=== PATIENT | female | born 1980 | race Caucasian/White ===

== ENCOUNTER 2016-05-31 06:48 | Emergency (ER) | payer OTHER ==
[~2016-05-31] VITALS: Ht 162.6 cm; Wt 67.1 kg
[~2016-05-31 06:48] MED LIST: HYDR-1189 PO; LACTIN PO; LEVO500T20 PO; METR500T PO
[2016-05-31 06:56] VITALS: BP 125/74; PULSE 89; RESP 16; TEMP 97.8; O2SAT 100
--- NOTE | 2016-05-31 07:00 | NUR ---
Patient to ER bed 08 to gown for evaluation. Side rails up.
--- NOTE | 2016-05-31 07:10 | NUR ---
Assumed care,pt presents to ED c/o migraine type LOPEZ.Pt reports h/o migraines, Pt HCG(+).
--- NOTE | 2016-05-31 07:12 | NUR ---
ER at bedside examining patient.
[2016-05-31] MEDS ORDERED: NACL 0.9% 1,000 ML IV ONE (07:16)
[2016-05-31 07:25] LABS: BILIRUBIN,URINE NEGATIVE (NEGATIVE); BLOOD, URINE NEGATIVE (NEGATIVE); CLARITY/URINE SL HAZY (CLEAR); COLOR,URINE YELLOW (YELLOW); GLUCOSE,URINE NEGATIVE (NEGATIVE); KETONES,URINE NEGATIVE (NEGATIVE); LEUKOCYTE ESTERASE ,URINE NEGATIVE (NEGATIVE); NITRITE, URINE NEGATIVE (NEGATIVE); PROTEIN URINE NEGATIVE (NEGATIVE); UROBILINOGEN,URINE 0.2 (0.2-1.0)
[2016-05-31] MEDS ORDERED: PROCHLORPERAZINE EDISYLATE 10 MG/2 ML VIAL IVP ONE (07:30)
[2016-05-31] MEDS ORDERED: ACETAMINOPHEN 500 MG TABLET PO ONE (07:30)
[2016-05-31] MEDS ORDERED: DIPHENHYDRAMINE INJ 50 MG/ML VIAL IVP ONE (07:30)
--- NOTE | 2016-05-31 07:40 | NUR ---
Pt tolerated medication well.Pt reports pain resolved.
[2016-05-31 08:00] VITALS: BP 120/76; PULSE 84; RESP 16; TEMP 97.8; O2SAT 100
--- NOTE | 2016-05-31 08:00 | NUR ---
Patient given written and verbal discharge instructions and verbalizes understanding. ER MD discussed with patient the results and treatment provided. Given copies of tests performed in ER. Patient in stable condition. ID arm band removed. IV catheter removed intact and dressing applied, no active bleeding. Rx of Reglan given. Patient educated on pain management and to follow up with PMD. Pain Scale 0. Opportunity for questions provided and answered.
== END 2016-05-31 08:00 | disposition home or self-care (01) ==
LOC: SED 06:48
DX: O26.899 Other specified pregnancy related conditions, unspecified trimester (principal); G43.909 Migraine, unspecified, not intractable, without status migrainosus
CPT/HCPCS: 81003; 81025; 96361; 96374; 96375; 99284; J0780; J1200; J7030

== ENCOUNTER 2016-08-09 19:45 | Emergency (ER) | payer OTHER ==
[~2016-08-09] VITALS: Ht 165.1 cm; Wt 66.2 kg
[2016-08-09 19:50] VITALS: BP_SYST 108
[2016-08-09] MEDS ORDERED: NACL 0.9% 1,000 ML IV ONE (21:15)
[2016-08-09 21:17] LABS: BILIRUBIN,URINE NEGATIVE (NEGATIVE); BLOOD, URINE NEGATIVE (NEGATIVE); CLARITY/URINE HAZY (CLEAR); COLOR,URINE YELLOW (YELLOW); GLUCOSE,URINE NEGATIVE (NEGATIVE); KETONES,URINE TRACE (NEGATIVE); LEUKOCYTE ESTERASE ,URINE NEGATIVE (NEGATIVE); NITRITE, URINE NEGATIVE (NEGATIVE); PROTEIN URINE NEGATIVE (NEGATIVE); UROBILINOGEN,URINE 0.2 (0.2-1.0)
[2016-08-09 21:22] LABS: BASOPHILS % (AUTO) 0.3 % (0.0-2.0); EOSINOPHILS # (AUTO) 0.3 K/uL (0.0-0.4); EOSINOPHILS % (AUTO) 2.4 % (0.0-4.0); HEMOGLOBIN 11.3 g/dL (12.0-16.0); LYMPHOCYTES # (AUTO) 1.4 K/uL (1.0-5.5); LYMPHOCYTES % (AUTO) 11.2 % (20.5-51.5); MEAN CORPUSCULAR HEMOGLOBIN 30 pg (27-31); MEAN CORPUSCULAR HGB CONC 34 % (32-36); MEAN CORPUSCULAR VOLUME 89 fL (79.0-98.0); MONOCYTES % (AUTO) 7.7 % (1.7-9.3); NEUTROPHILS # (AUTO) 9.8 K/uL (1.8-7.7); NEUTROPHILS % (AUTO) 78.4 % (40.0-70.0); PLATELET COUNT (AUTO) 232 K/uL (130-430); RED BLOOD CELL COUNT(AUTO) 3.72 MIL/uL (4.2-6.2); RED CELL DISTRIBUTION WIDTH 12.9 % (9.0-15.0); WHITE BLOOD COUNT (AUTO) 12.4 K/uL (4.8-10.8)
[2016-08-09 21:36] LABS: CALCIUM 9.2 mg/dL (8.4-11.0); CREATININE 0.63 mg/dL (0.55-1.30); POTASSIUM 3.3 mmol/L (3.5-5.1)
[2016-08-09 21:49] LABS: ALBUMIN 2.9 g/dL (3.4-4.8); INR 0.9 (0.8-1.2); TOTAL BILIRUBIN 0.1 mg/dL (0.0-1.0); TOTAL PROTEIN, SERUM 7.3 g/dL (6.4-8.3)
[2016-08-10 00:01] VITALS: BP_SYST 118
== END 2016-08-10 00:01 | disposition home or self-care (01) ==
LOC: SED 19:45
DX: O26.892 Other specified pregnancy related conditions, second trimester (principal); R53.1 Weakness; R79.89 Other specified abnormal findings of blood chemistry; R42 Dizziness and giddiness; G43.909 Migraine, unspecified, not intractable, without status migrainosus; Z3A.16 16 weeks gestation of pregnancy; Z88.8 Allergy status to other drugs, medicaments and biological substances
CPT/HCPCS: 36415; 80053; 81003; 84702; 85025; 85384; 85610; 85730; 93005; 96360; 99285; J7030

== ENCOUNTER 2016-11-09 21:20 | Emergency (ER) | payer OTHER ==
[~2016-11-09] VITALS: Ht 162.6 cm; Wt 72.6 kg
[2016-11-09 21:45] VITALS: BP_SYST 117
[2016-11-10] MEDS ORDERED: MAGNESIUM CITRATE 300 ML ORAL SOLUTION PO ONE
[2016-11-10 00:30] VITALS: BP_SYST 119
== END 2016-11-10 00:30 | disposition home or self-care (01) ==
LOC: SED 21:20
DX: O26.893 Other specified pregnancy related conditions, third trimester (principal); K59.00 Constipation, unspecified; G43.909 Migraine, unspecified, not intractable, without status migrainosus; Z3A.30 30 weeks gestation of pregnancy; Z90.49 Acquired absence of other specified parts of digestive tract; Z88.1 Allergy status to other antibiotic agents
CPT/HCPCS: 99283

== ENCOUNTER 2017-05-04 10:11 | Emergency (ER) | payer OTHER ==
[~2017-05-04] VITALS: Ht 165.1 cm; Wt 68.0 kg
[2017-05-04 10:11] VITALS: BP_SYST 133
[2017-05-04] MEDS ORDERED: LIDOCAINE 1% 10 MG/ML, 20 ML MDV IJ ONE (11:30)
[2017-05-04 15:17] LABS: BF APPEARANCE UNSPUN CLOUDY (CLEAR)
[2017-05-04 15:18] LABS: BODY FLUID COLOR YELLOW (LT YELLOW); BODY FLUID SOURCE/ TYPE RIGHT KNEE; BODY FLUID TOTAL VOLUME 55 mL; RBC, BODY FLUID 1188 /uL; SOURCE/TYPE ,BODY FLUID SYNOVIAL; WBC, BODY FLUID 3122 /uL
[2017-05-04 15:22] LABS: LYMPHOCYTES, BODY FLUID 62 %; MONOCYTES,BODY FLUID 22 %; NEUTROPHIL, BODY FLUID 16 %
[2017-05-04 16:16] LABS: BODY FLUID CRYSTALS NO CRYSTALS SEEN (None Seen)
[2017-05-04 16:59] LABS: BODY FLUID GLUCOSE 89 mg/dL; BODY FLUID TOTAL PROTEIN 4.9 g/dL
== END 2017-05-04 15:34 | disposition home or self-care (01) ==
LOC: SED 10:11
DX: M25.461 Effusion, right knee (principal); Z88.8 Allergy status to other drugs, medicaments and biological substances; Z90.49 Acquired absence of other specified parts of digestive tract
CPT/HCPCS: 20610; 73564; 82947; 84157; 87070; 89051 ×2; 89060; 99285; J2001

== ENCOUNTER 2018-05-09 07:59 | Emergency (ER) | payer OTHER ==
[~2018-05-09] VITALS: Ht 165.1 cm; Wt 66.7 kg
[2018-05-09 08:00] VITALS: BP_SYST 126
[2018-05-09] MEDS ORDERED: IBUPROFEN 600 MG TABLET PO ONE (08:30)
[2018-05-09 08:44] LABS: BASOPHILS # (AUTO) 0.1 K/uL (0.0-0.2); BASOPHILS % (AUTO) 0.8 % (0.0-2.0); EOSINOPHILS # (AUTO) 0.1 K/uL (0.0-0.4); EOSINOPHILS % (AUTO) 1.8 % (0.0-4.0); HEMATOCRIT 36.6 % (36-48); LYMPHOCYTES # (AUTO) 2.3 K/uL (1.0-5.5); MEAN CORPUSCULAR HEMOGLOBIN 29 pg (27-31); MEAN CORPUSCULAR HGB CONC 33 % (32-36); MEAN CORPUSCULAR VOLUME 90 fL (79.0-98.0); MONOCYTES # (AUTO) 0.7 K/uL (0.0-1.0); MONOCYTES % (AUTO) 10.4 % (1.7-9.3); NEUTROPHILS # (AUTO) 3.8 K/uL (1.8-7.7); PLATELET COUNT (AUTO) 277 K/uL (130-430); RED BLOOD CELL COUNT(AUTO) 4.09 MIL/uL (4.2-6.2); RED CELL DISTRIBUTION WIDTH 13.3 % (9.0-15.0)
[2018-05-09] MEDS ORDERED: IBUPROFEN 600 MG TABLET ONE (08:48)
[2018-05-09 08:50] LABS: CALCIUM 8.9 mg/dL (8.4-11.0); CREATININE 0.67 mg/dL (0.55-1.30); POTASSIUM 3.8 mmol/L (3.5-5.1)
[2018-05-09 08:54] LABS: ALBUMIN 3.9 g/dL (3.4-4.8); TOTAL BILIRUBIN 0.5 mg/dL (0.0-1.0)
[2018-05-09 09:32] VITALS: BP_SYST 109
== END 2018-05-09 09:32 | disposition home or self-care (01) ==
LOC: SED 07:59
DX: R51 Headache (principal); R42 Dizziness and giddiness; M19.90 Unspecified osteoarthritis, unspecified site; Z88.8 Allergy status to other drugs, medicaments and biological substances
CPT/HCPCS: 36415; 70450-TC; 80053; 81002; 81025; 85025; 99284

== ENCOUNTER 2019-03-24 23:00 | Emergency (ER) | payer OTHER ==
[~2019-03-24] VITALS: Ht 162.6 cm; Wt 66.7 kg
[2019-03-24 23:38] VITALS: BP_SYST 118
--- NOTE | 2019-03-24 23:44 | NUR ---
Pt placed to ER bed 07. Report given to ADIS Astorga.
[2019-03-25] MEDS ORDERED: KETOROLAC TROMETHAMINE 30 MG VIAL IVP ONE
[2019-03-25] MEDS ORDERED: NACL 0.9% 1,000 ML IV ONE
--- NOTE | 2019-03-25 00:08 | NUR ---
Dr. Rodriguez bedside for Pt eval
[2019-03-25] MEDS ORDERED: ONDANSETRON HCL 4 MG/2 ML VIAL IVP ONE (00:15)
--- NOTE | 2019-03-25 00:20 | NUR ---
Pt BIB family to ED C/O headache and vomiting since this morning. Pt with continued vomiting today. Pt with abdominal pain. Pt with fever and chills. Pt denies hematemesis. Pt describes sharp intermittent 7/10 epigastric without radiation. Pt denies dysuria. Pt denies diarrhea. Pt took Motrin without improvement in pain. Pt denies lightheadedness or LOC. Pt with body aches. No other complaints and or injuries noted VSS no s/s of acute distress. Resting on gurney rails up
--- NOTE | 2019-03-25 00:55 | NUR ---
Dr. Rodriguez bedside for Pt update
[2019-03-25 01:25] VITALS: BP_SYST 118
--- NOTE | 2019-03-25 01:25 | NUR ---
Patient given written and verbal discharge instructions and verbalizes understanding. ER MD discussed with patient the results and treatment provided. Patient in stable condition. ID arm band removed. IV catheter removed intact and dressing applied, no active bleeding. Rx of Motrin, Zofran and Grant given. Patient educated on pain management and to follow up with PMD. Pain Scale 0/10 Opportunity for questions provided and answered. Medication side effect fact sheet provided.
== END 2019-03-25 01:25 | disposition home or self-care (01) ==
LOC: SED 23:00
DX: R10.13 Epigastric pain (principal); R11.2 Nausea with vomiting, unspecified; G43.909 Migraine, unspecified, not intractable, without status migrainosus; Z90.49 Acquired absence of other specified parts of digestive tract; Z88.8 Allergy status to other drugs, medicaments and biological substances
CPT/HCPCS: 96361; 96374; 96375; 99283; J1885; J2405; J7030

== ENCOUNTER 2019-07-30 05:15 | Emergency (ER) | payer OTHER ==
[~2019-07-30] VITALS: Ht 162.6 cm; Wt 67.1 kg
[2019-07-30 05:46] VITALS: BP_SYST 140
[2019-07-30] MEDS ORDERED: NACL 0.9% 1,000 ML IV ONE (06:16)
[2019-07-30] MEDS ORDERED: PROCHLORPERAZINE EDISYLATE 10 MG/2 ML VIAL IVP ONE (06:30)
[2019-07-30] MEDS ORDERED: KETOROLAC TROMETHAMINE 30 MG VIAL IVP ONE (06:30)
[2019-07-30] MEDS ORDERED: BENZTROPINE MESYLATE 2 MG/ 2 ML AMP IVP ONE (06:30)
[2019-07-30 07:09] VITALS: BP_SYST 140
== END 2019-07-30 07:09 | disposition home or self-care (01) ==
LOC: SED 05:15
DX: G43.901 Migraine, unspecified, not intractable, with status migrainosus (principal); Z88.6 Allergy status to analgesic agent; Z90.49 Acquired absence of other specified parts of digestive tract
CPT/HCPCS: 96374; 96375; 99284; J0515; J0780; J1885; J7030

== ENCOUNTER 2020-10-17 01:44 | Emergency (ER) | payer OTHER ==
[~2020-10-17] VITALS: Ht 162.6 cm; Wt 68.0 kg
[2020-10-17 01:55] VITALS: BP_SYST 141
--- NOTE | 2020-10-17 01:55 | NUR ---
Patient to ER bed 7 to gown for evaluation. Side rails up. Report given to PATRICIA ARCEO.
--- NOTE | 2020-10-17 01:56 | NUR ---
Came in ER ambulatory from home this 44 year old female, AAOX4, bretahing spontaneously at room air, not in distress noted. With chief complaints of severe headcahe since 11pm, history of Migraine and rheumatoid arthritis. Allergy to dephenhydramine and sumatripan. Vital signs stable
--- NOTE | 2020-10-17 02:01 | NUR ---
Seen and examined by Dr. Abreu
[2020-10-17] MEDS ORDERED: KETOROLAC TROMETHAMINE 30 MG VIAL IM ONE (02:15)
[2020-10-17] MEDS ORDERED: PROCHLORPERAZINE EDISYLATE 10 MG/2 ML VIAL IVP ONE (02:15)
[2020-10-17] MEDS ORDERED: NS 500 ML IV ONE (02:15)
--- NOTE | 2020-10-17 02:25 | NUR ---
# 20 gauge angiocath placed to left ac. Use of asceptic technique. Opsite placed over site. Blood return noted. Flushed with 10 cc of normal saline. No evidence of infiltration noted. Patient tolerated well.
--- NOTE | 2020-10-17 02:26 | NUR ---
Medications given as ordered, health teaching provided and verbalized understanding
--- NOTE | 2020-10-17 03:01 | NUR ---
Re-assesed by Dr. Abreu, for discharge
[2020-10-17 03:09] VITALS: BP_SYST 124
--- NOTE | 2020-10-17 03:09 | NUR ---
Patient given written and verbal discharge instructions and verbalizes understanding. ER MD discussed with patient the results and treatment provided. Patient in stable condition. ID arm band removed. IV catheter removed intact and dressing applied, no active bleeding. No Rx of given. Patient educated on pain management and to follow up with PMD. Pain Scale 0/10. Opportunity for questions provided and answered. Medication side effect fact sheet provided.
== END 2020-10-17 03:09 | disposition home or self-care (01) ==
LOC: SED 01:44
DX: G43.909 Migraine, unspecified, not intractable, without status migrainosus (principal); Z88.8 Allergy status to other drugs, medicaments and biological substances
CPT/HCPCS: 81025; 96361; 96372; 96374; 99284; J0780; J1885; J7030

== ENCOUNTER 2022-05-11 08:17 | Emergency (ER) | payer OTHER ==
[~2022-05-11] VITALS: Ht 162.6 cm; Wt 70.3 kg
[2022-05-11 08:20] VITALS: BP_SYST 125
--- NOTE | 2022-05-11 08:28 | NUR ---
Patient triaged and placed in waiting room. VSS and patient appears in no acute distress at this time. Accompanied by SELF, awaiting available bed, and MD notified of need for MSE.
--- NOTE | 2022-05-11 08:35 | NUR ---
BROUGHT BACK TO BED IN HALLWAY AND REPORT GIVEN TO YARA
--- NOTE | 2022-05-11 08:40 | NUR ---
ER DR. GUERRA EXAMINING PT
[2022-05-11] MEDS ORDERED: LIDOCAINE PATCH 5% 1 EA TP ONE (09:00)
[2022-05-11] MEDS ORDERED: predniSONE 20 MG TABLET PO ONE (09:00)
[2022-05-11] MEDS ORDERED: KETOROLAC TROMETHAMINE 30 MG VIAL IM ONE (09:00)
[2022-05-11] MEDS ORDERED: CYCLOBENZAPRINE HCL 10 MG TABLET (FLEXERIL) PO ONE (09:00)
[2022-05-11] MEDS ORDERED: ACETAMINOPHEN 500 MG TABLET PO ONE (09:45)
[2022-05-11] MEDS ORDERED: LIDO1ADH22 TP (10:08)
[2022-05-11] MEDS ORDERED: METH-634 PO (10:08)
[2022-05-11] MEDS ORDERED: OXYC-128 PO (10:08)
[2022-05-11] MEDS ORDERED: PRED20TA PO (10:08)
[2022-05-11] MEDS ORDERED: IBUP-1970 PO (10:08)
[2022-05-11 10:20] VITALS: BP_SYST 125
--- NOTE | 2022-05-11 10:21 | NUR ---
Patient given written and verbal discharge instructions and verbalizes understanding. ER MD discussed with patient the results and treatment provided. Patient in stable condition. ID arm band removed. IV catheter removed intact and dressing applied, no active bleeding. Rx of IBUPROFEN, LIDOCAINE PATCH, PERCOCET, ROBAXIN AND PREDNISONE given. Patient educated on pain management and to follow up with PMD. Pain Scale 0/10. Opportunity for questions provided and answered. Medication side effect fact sheet provided.
== END 2022-05-11 10:21 | disposition home or self-care (01) ==
LOC: SED 08:17
DX: M54.32 Sciatica, left side (principal); M54.50 Low back pain, unspecified; M79.662 Pain in left lower leg; I10 Essential (primary) hypertension; Z88.8 Allergy status to other drugs, medicaments and biological substances; Z79.899 Other long term (current) drug therapy
CPT/HCPCS: 99283; J7512; J1885

== ENCOUNTER 2022-11-26 02:25 | Emergency (ER) | payer OTHER ==
[~2022-11-26] VITALS: Ht 162.6 cm; Wt 68.0 kg
[~2022-11-26 02:25] MED LIST changes: -HYDR-1189 PO; +IBUP-1970 PO; -LACTIN PO; -LEVO500T20 PO; +LIDO1ADH22 TP; +METH-634 PO; -METR500T PO; +OXYC-128 PO; +PRED20TA PO
[2022-11-26 02:37] VITALS: BP_SYST 124; PULSE 76; RESP 19; TEMP 97.9; O2SAT 99
[2022-11-26] MEDS ORDERED: IBUP-1969 PO (02:55)
[2022-11-26] MEDS ORDERED: ONDA8TAB60 PO (02:55)
[2022-11-26 02:59] LABS: BILIRUBIN,URINE NEGATIVE (NEGATIVE); BLOOD, URINE NEGATIVE (NEGATIVE); CLARITY/URINE CLEAR (CLEAR); COLOR,URINE YELLOW (YELLOW); GLUCOSE,URINE NEGATIVE (NEGATIVE); KETONES,URINE NEGATIVE (NEGATIVE); LEUKOCYTE ESTERASE ,URINE NEGATIVE (NEGATIVE); NITRITE, URINE NEGATIVE (NEGATIVE); PROTEIN URINE NEGATIVE (NEGATIVE); UROBILINOGEN,URINE 0.2 (0.2-1.0)
[2022-11-26] MEDS ORDERED: KETOROLAC TROMETHAMINE 60 MG/2 ML VIAL IM ONE (03:00)
[2022-11-26] MEDS ORDERED: ONDANSETRON 4 MG ODT TAB PO ONE (03:00)
[2022-11-26] MEDS ORDERED: MORPHINE 4 MG INJ. 4 MG/ML VIAL IM ONE (03:45)
[2022-11-26 04:00] VITALS: BP_SYST 124; PULSE 76; RESP 19; TEMP 97.9; O2SAT 99
== END 2022-11-26 04:00 | disposition home or self-care (01) ==
LOC: SED 02:25
DX: R51.9 Headache, unspecified (principal); R11.2 Nausea with vomiting, unspecified; M54.2 Cervicalgia; Z88.8 Allergy status to other drugs, medicaments and biological substances; Z79.899 Other long term (current) drug therapy
CPT/HCPCS: 99284; 96372; 81003; Q0162; J1885; J2270

== ENCOUNTER 2023-09-03 23:30 | Emergency (ER) | payer OTHER ==
[~2023-09-03] VITALS: Ht 162.6 cm; Wt 67.1 kg
[~2023-09-03 23:30] MED LIST changes: +IBUP-1969 PO; +ONDA8TAB60 PO
[2023-09-03 23:39] VITALS: BP_SYST 151; PULSE 115; RESP 20; TEMP 96.8; O2SAT 98
[2023-09-03] MEDS: KETOROLAC TROMETHAMINE 60 MG/2 ML VIAL IM ONE (23:55)
[2023-09-04] MEDS ORDERED: NAPR-1172 PO (01:17)
[2023-09-04 01:20] VITALS: BP_SYST 151; PULSE 115; RESP 20; TEMP 96.8; O2SAT 98
== END 2023-09-04 01:23 | disposition home or self-care (01) ==
LOC: SED 23:30
DX: S82.62XA Displaced fracture of lateral malleolus of left fibula, initial encounter for closed fracture (principal); S83.91XA Sprain of unspecified site of right knee, initial encounter; Z88.8 Allergy status to other drugs, medicaments and biological substances; W19.XXXA Unspecified fall, initial encounter; Y93.89 Activity, other specified; Y92.830 Public park as the place of occurrence of the external cause; Y99.8 Other external cause status
CPT/HCPCS: 99284; 29515; 73560; 73610; 81025; 96372; J1885